=== PATIENT | male | born 1945 | race African-American/Black ===

== ENCOUNTER 2025-03-24 09:51 | Inpatient (IN) | payer MEDICARE, OTHER ==
[~2025-03-24] VITALS: Ht 172.7 cm; Wt 86.2 kg
[2025-03-24] MEDS: FUROSEMIDE 40MG/4ML VIAL IV ONE (10:13)
[2025-03-24] MEDS: METHYLPREDNISOLONE SOD SUCC 125MG/2ML (ACT-O-VIAL) IV ONE (10:13)
[2025-03-24] MEDS: IPRATROPIUM BROMIDE (0.02%) 0.5MG/2.5ML NEB HHN ONE (10:30)
[2025-03-24] MEDS: ALBUTEROL (0.083%) 2.5MG/3ML NEB HHN ONE (10:31)
[2025-03-24 10:32] LABS: BASOPHILS % 0.2 % (0.0-2.0); EOSINOPHILS % 0.1 % (0.0-5.0); HEMATOCRIT. 41.5 % (42.0-52.0); HEMOGLOBIN. 12.9 g/dL (14.0-18.0); LYMPHOCYTES % 7.8 % (20.0-50.0); MEAN PLATELET VOLUME 10.7 fl (7.4-10.4); MONOCYTES % 6.0 % (2.0-8.0); NEUTROPHILS % 85.9 % (40.0-76.0); PLATELET 212 x1000/uL (130-400); RED BLOOD CELL COUNT 4.37 mill/uL (4.7-6.1); RED CELL DISTRIBUTION WIDTH 16.8 % (11.6-14.6)
[2025-03-24 10:56] LABS: TROPONIN I HIGH SENSITIVITY 98 ng/L (3.0-53)
[2025-03-24 11:01] VITALS: PULSE 111; RESP 21; O2SAT 93
[2025-03-24 11:32] LABS: INR 1.0
[2025-03-24 11:48] LABS: CREATININE 1.1 mg/dL (0.6-1.3); UREA NITROGEN BLOOD 17 mg/dL (9-23)
[2025-03-24 11:50] LABS: ASPARTATE AMINOTRANSFERASE 30 IU/L (<34)
[2025-03-24 11:51] LABS: BILIRUBIN DIRECT < 0.1 mg/dL (<=3.0); BILIRUBIN TOTAL 0.3 mg/dL (0.1-1.0); PROTEIN TOTAL 8.4 g/dL (6.0-8.3)
[2025-03-24] MEDS ORDERED: ENOXAPARIN 120MG/0.8ML SYR SUBCUT ONE (12:15)
[2025-03-24] MEDS ORDERED: ASPIRIN 81MG TABLET PO ONE (12:15)
[2025-03-24] MEDS: ASPIRIN 81MG TABLET PO SCH ×2 (13:43→21:38)
[2025-03-24] MEDS: ENOXAPARIN 120MG/0.8ML SYR SUBCUT SCH (13:43)
[2025-03-24] MEDS ORDERED: CLONIDINE 0.1MG TABLET PO PRN (13:45)
[2025-03-24] MEDS ORDERED: IPRATROPIUM/ALBUTEROL 0.5-3(2.5)MG/3ML NEB HHN PRN (13:45)
[2025-03-24] MEDS: FUROSEMIDE 40MG/4ML VIAL IV SCH ×2 (13:45→17:15)
[2025-03-24] MEDS: ENOXAPARIN 40MG/0.4ML SYR SUBCUT SCH (13:45)
[2025-03-24] MEDS ORDERED: ACETAMINOPHEN 650MG/20.3ML UDC GT PRN ×2 (13:45)
[2025-03-24] MEDS ORDERED: ONDANSETRON HCL 4MG/2ML INJ IV PRN (13:45)
[2025-03-24] MEDS ORDERED: DEXTROSE 50% WATER 50ML SYRINGE IV PRN (14:30)
[2025-03-24] MEDS: EMPAGLIFLOZIN 10MG TABLET PO SCH (15:27)
[2025-03-24 16:07] LABS: PHOSPHORUS 3.0 mg/dL (2.5-4.9)
[2025-03-24] MEDS: PANTOPRAZOLE SODIUM 40 MG/VIAL IV SCH (16:16)
[2025-03-24 17:02] LABS: TROPONIN I HIGH SENSITIVITY 159 ng/L (3.0-53)
[2025-03-24] MEDS: BLOOD SUGAR DIAGNOSTIC STRIP TEST SCH (17:08)
[2025-03-24] MEDS: SPIRONOLACTONE 12.5MG TABLET PO SCH (17:15)
[2025-03-24] MEDS: POTASSIUM CHLORIDE 20MEQ/PACKET PO NR (17:21)
[2025-03-24 20:30] VITALS: BP 102/82; PULSE 104; RESP 20; TEMP 36.418
[2025-03-24] MEDS: INSULIN LISPRO 100 UNITS/ML SUBCUT SCH (21:00)
[2025-03-24 21:45] LABS: PLATELET 210 x1000/uL (130-400); RED BLOOD CELL COUNT 4.41 mill/uL (4.7-6.1); RED CELL DISTRIBUTION WIDTH 14.9 % (11.6-14.6)
[2025-03-24 23:15] LABS: TROPONIN I HIGH SENSITIVITY 168 ng/L (3.0-53)
[2025-03-25] VITALS (13 sets, daily range): BP systolic 92–158; BP diastolic 55–101; PULSE 80–118; RESP 16–28; TEMP 36.3–37.4; O2SAT 97–100
[2025-03-25 00:19] LABS: CREATININE 1.1 mg/dL (0.6-1.3); UREA NITROGEN BLOOD 16 mg/dL (9-23)
[2025-03-25] MEDS ORDERED: FURO-152 PO (07:57)
[2025-03-25] MEDS ORDERED: EMPA10TA PO (07:57)
[2025-03-25] MEDS ORDERED: SPIR25TA6 PO (07:57)
[2025-03-25] MEDS ORDERED: METO-411 PO (07:57)
[2025-03-25] MEDS ORDERED: ALBU10.7 (07:57)
[2025-03-25] MEDS ORDERED: ASPI-1497 PO (07:57)
[2025-03-25] MEDS: FUROSEMIDE 40MG/4ML VIAL IVP ONE (10:15)
[2025-03-25 10:32] LABS: BG BASE EXCESS -3.3 mmol/L (-2.0-3.0); BG CARBOXYHEMOGLOBIN 1.1 % (0.5-1.5); BG DEOXYHEMOGLOBIN 14.6 % (0.0-5.0); BG FLOW(L/min) 10.00 L/min; BG FRACTION INSPIRED OXYGEN 60; BG HCO3 ACT 29.7 mmol/L (21.0-28.0); BG METHEMOGLOBIN 0.0 % (0.5-1.5); BG OXYGEN SATURATION 85.2 % (94.0-98.0); BG OXYHEMOGLOBIN 84.3 % (94.0-98.0); BG PCO2 100.2 mmHg (35.0-48.0); BG PH 7.090 (7.350-7.450); BG PO2 63.4 mmHg (83.0-108.0); BG SAMPLE SITE RIGHT RADIAL; BG TOTAL HEMOGLOBIN 15.1 g/dL (13.5-17.5); BG VENT MODE MASK - HHN
[2025-03-25] MEDS: FUROSEMIDE 40MG/4ML VIAL IVP NR (10:38)
[2025-03-25] MEDS: METHYLPREDNISOLONE SOD SUCC 125MG/2ML (ACT-O-VIAL) IV NR (10:39)
[2025-03-25 11:08] LABS: CLARITY URINE CLEAR (CLEAR); COLOR URINE YELLOW (YELLOW); GLUCOSE URINE 3+ (NEGATIVE); KETONES URINE NEGATIVE (NEGATIVE); LEUKOCYTE ESTERASE URINE NEGATIVE (NEGATIVE); NITRITE URINE NEGATIVE (NEGATIVE); OCCULT BLOOD URINE NEGATIVE (NEGATIVE); PH URINE 5.5 (4.5-8.0); PROTEIN URINE NEGATIVE (NEGATIVE); SPECIFIC GRAVITY URINE 1.033 (1.005-1.030); UROBILINOGEN URINE 0.2 E.U./dL (0.2-1.0)
[2025-03-25 11:36] LABS: *AMPHETAMINES SCREEN URINE NEGATIVE (NEGATIVE); *BARBITURATES SCREEN URINE NEGATIVE (NEGATIVE); *BENZODIAZEPINES SCREEN URINE NEGATIVE (NEGATIVE); *COCAINE SCREEN URINE NEGATIVE (NEGATIVE); CANNABINOID URINE SCREEN NEGATIVE (NEGATIVE); ECSTASY MDMA SCREEN URINE NEGATIVE (NEGATIVE); METHADONE URINE SCREEN NEGATIVE (NEGATIVE); OPIATES URINE SCREEN NEGATIVE (NEGATIVE); PHENCYCLIDINE URINE SCREEN NEGATIVE (NEGATIVE)
[2025-03-25] MEDS: ENOXAPARIN 100MG/ML SYR SUBCUT SCH (12:04)
[2025-03-25 12:33] LABS: BACTERIA URINE NONE SEEN; RBC URINE NONE SEEN /hpf (0-2); SQUAMOUS EPITHELIAL CELL URINE NONE SEEN /lpf (RARE/1+); WBC URINE 0-2 /hpf (0-2); YEAST URINE NONE SEEN
[2025-03-25] MEDS: IPRATROPIUM/ALBUTEROL 0.5-3(2.5)MG/3ML NEB HHN SCH (12:52)
[2025-03-25] MEDS ORDERED: ENOXAPARIN 30MG/0.3ML SYR SUBCUT SCH (13:00)
[2025-03-25 13:18] LABS: BG BASE EXCESS -0.6 mmol/L (-2.0-3.0); BG CARBOXYHEMOGLOBIN 0.8 % (0.5-1.5); BG DEOXYHEMOGLOBIN 0.7 % (0.0-5.0); BG FRACTION INSPIRED OXYGEN 45; BG HCO3 ACT 25.4 mmol/L (21.0-28.0); BG METHEMOGLOBIN 0.3 % (0.5-1.5); BG OXYGEN SATURATION 99.3 % (94.0-98.0); BG OXYHEMOGLOBIN 98.2 % (94.0-98.0); BG PCO2 47.0 mmHg (35.0-48.0); BG PH 7.351 (7.350-7.450); BG PO2 153.4 mmHg (83.0-108.0); BG SAMPLE SITE RIGHT RADIAL; BG TOTAL HEMOGLOBIN 14.6 g/dL (13.5-17.5); BG VENT MODE MASK - BIPAP; BG VENT RATE 20.0 set
[2025-03-25] MEDS: FUROSEMIDE 40MG/4ML VIAL IVP SCH (13:20)
[2025-03-25] MEDS: METHYLPREDNISOLONE SOD SUCC 40MG/ML (ACT-O-VIAL) IV SCH (13:21)
[2025-03-25 16:50] LABS: PLATELET 182 x1000/uL (130-400); RED BLOOD CELL COUNT 4.76 mill/uL (4.7-6.1); RED CELL DISTRIBUTION WIDTH 15.5 % (11.6-14.6)
[2025-03-25 16:54] LABS: CREATININE 1.3 mg/dL (0.6-1.3); TRIGLYCERIDE 83 mg/dL (0-150); UREA NITROGEN BLOOD 21 mg/dL (9-23)
[2025-03-25 16:55] LABS: LDL CHOLESTEROL 142 mg/dL (5-100)
[2025-03-25 17:01] LABS: TROPONIN I HIGH SENSITIVITY 255 ng/L (3.0-53)
[2025-03-25] MEDS ORDERED: DEXT 5%/0.9% NACL 1,000 ML IV SCH (17:15)
[2025-03-25] MEDS: PIPERACILLIN/TAZO 3.375G/50ML 50 ML IV SCH (18:32)
[2025-03-25 20:55] LABS: INFLUENZA TYPE A Presumptive Negative (Pres. Neg.); INFLUENZA TYPE B Presumptive Negative (Pres. Neg.)
[2025-03-25 20:56] LABS: RESPIRATORY SYNCYTIAL VIRUS Not Detected (Not Detectd)
[2025-03-26] VITALS (21 sets, daily range): BP systolic 104–136; BP diastolic 68–89; PULSE 81–114; RESP 16–28; TEMP 36.2–37.1; O2SAT 80–100
[2025-03-26 06:14] LABS: HEMATOCRIT. 39.0 % (42.0-52.0); HEMOGLOBIN. 12.5 g/dL (14.0-18.0); MEAN PLATELET VOLUME 11.8 fl (7.4-10.4); PLATELET 188 x1000/uL (130-400); RED BLOOD CELL COUNT 4.24 mill/uL (4.7-6.1); RED CELL DISTRIBUTION WIDTH 14.9 % (11.6-14.6)
[2025-03-26 06:32] LABS: CREATININE 1.3 mg/dL (0.6-1.3); UREA NITROGEN BLOOD 41 mg/dL (9-23)
[2025-03-26 15:42] LABS: LYMPHOCYTES % MANUAL 4.0 % (20.0-50.0); MONOCYTES % MANUAL 3.0 % (2.0-8.0); NEUTROPHILS % MANUAL 93.0 % (45.0-75.0); PLATELET ESTIMATE NORMAL
[2025-03-26] MEDS: ATORVASTATIN CALCIUM 40MG TABLET PO SCH (20:58)
[2025-03-27] VITALS (12 sets, daily range): BP systolic 101–131; BP diastolic 64–85; PULSE 77–102; RESP 15–24; TEMP 36.7–37; O2SAT 91–100
[2025-03-27 07:15] LABS: HEMATOCRIT. 40.2 % (42.0-52.0); HEMOGLOBIN. 13.2 g/dL (14.0-18.0); MEAN PLATELET VOLUME 11.0 fl (7.4-10.4); PLATELET 192 x1000/uL (130-400); RED BLOOD CELL COUNT 4.44 mill/uL (4.7-6.1); RED CELL DISTRIBUTION WIDTH 14.8 % (11.6-14.6)
[2025-03-27 07:30] LABS: CREATININE 1.3 mg/dL (0.6-1.3); UREA NITROGEN BLOOD 39 mg/dL (9-23)
[2025-03-27] MEDS ORDERED: VERAPAMIL HCL 2.5 MG/1 ML 2ML VIAL IV ONE (10:30)
[2025-03-27] MEDS ORDERED: LIDOCAINE HCL 1% 20ML VIAL ONE (10:31)
[2025-03-27] MEDS ORDERED: IODIXANOL 320MG/ML 100 ML BOTTLE IV ONE (10:31)
[2025-03-27] MEDS ORDERED: HEPARIN 1000 UNITS/ML 10ML ONE (10:31)
[2025-03-27] MEDS ORDERED: FENTANYL CITRATE/PF 50MCG/ML 2ML VIAL ONE (11:09)
[2025-03-27] MEDS ORDERED: MIDAZOLAM HCL 2 MG/2 ML VIAL ONE (11:09)
[2025-03-27] MEDS ORDERED: DIPHENHYDRAMINE 50MG/ML VIAL ONE (11:09)
[2025-03-27] MEDS: REGADENOSON 0.4 MG/5 ML IV ONE (12:00)
[2025-03-27 16:03] LABS: BG BASE EXCESS 4.7 mmol/L (-2.0-3.0); BG CARBOXYHEMOGLOBIN 1.6 % (0.5-1.5); BG DEOXYHEMOGLOBIN 7.3 % (0.0-5.0); BG FRACTION INSPIRED OXYGEN 21; BG HCO3 ACT 29.6 mmol/L (21.0-28.0); BG METHEMOGLOBIN 0.1 % (0.5-1.5); BG OXYGEN SATURATION 92.6 % (94.0-98.0); BG OXYHEMOGLOBIN 91.0 % (94.0-98.0); BG PCO2 44.9 mmHg (35.0-48.0); BG PH 7.437 (7.350-7.450); BG PO2 61.5 mmHg (83.0-108.0); BG SAMPLE SITE RIGHT RADIAL; BG TOTAL HEMOGLOBIN 14.0 g/dL (13.5-17.5); BG VENT MODE ROOM AIR
[2025-03-27] MEDS ORDERED: MORPHINE SULFATE/PF 1 MG/ML 100 MG in BAG 1 EACH IV PRN (17:45)
[2025-03-27] MEDS ORDERED: MORPHINE SULFATE 2 MG/ML INJ (NOT FOR IM USE) IV PRN ×2 (18:00)
[2025-03-27] MEDS: PIPERACILLIN/TAZO 3.375G/50ML 50 ML IV SCH (20:57)
[2025-03-27 21:27] LABS: BAND% 2.0 % (1.0-6.0); LYMPHOCYTES % MANUAL 3.0 % (20.0-50.0); MONOCYTES % MANUAL 5.0 % (2.0-8.0); NEUTROPHILS % MANUAL 90.0 % (45.0-75.0); PLATELET ESTIMATE NORMAL
[2025-03-28] VITALS (9 sets, daily range): BP systolic 107–141; BP diastolic 61–87; PULSE 79–94; RESP 14–20; TEMP 36.5–36.7; O2SAT 92–100
[2025-03-28 13:08] LABS: HEMATOCRIT. 43.8 % (42.0-52.0); HEMOGLOBIN. 14.2 g/dL (14.0-18.0); MEAN PLATELET VOLUME 11.8 fl (7.4-10.4); PLATELET 205 x1000/uL (130-400); RED BLOOD CELL COUNT 4.81 mill/uL (4.7-6.1); RED CELL DISTRIBUTION WIDTH 14.6 % (11.6-14.6)
[2025-03-28 13:20] LABS: CREATININE 1.3 mg/dL (0.6-1.3)
[2025-03-28 13:21] LABS: UREA NITROGEN BLOOD 40 mg/dL (9-23)
[2025-03-29] VITALS (11 sets, daily range): BP systolic 111–134; BP diastolic 64–82; PULSE 69–86; RESP 16–22; TEMP 36.3–36.8; O2SAT 95–100
[2025-03-29 17:11] LABS: LYMPHOCYTES % MANUAL 5.0 % (20.0-50.0); MONOCYTES % MANUAL 4.0 % (2.0-8.0); NEUTROPHILS % MANUAL 91.0 % (45.0-75.0); PLATELET ESTIMATE NORMAL
[2025-03-30] VITALS (10 sets, daily range): BP systolic 113–135; BP diastolic 61–87; PULSE 73–82; RESP 15–20; TEMP 36.3–37; O2SAT 95–99
[2025-03-30] MEDS: FAMOTIDINE 20MG/2ML VIAL IV SCH (08:49)
[2025-03-30] MEDS: METHYLPREDNISOLONE SOD SUCC 40MG/ML (ACT-O-VIAL) IV SCH (20:50)
[2025-03-31] VITALS: BP 102/66; PULSE 76; RESP 18; TEMP 36.7; O2SAT 97
[2025-03-31 04:00] VITALS: BP 120/79; PULSE 76; RESP 16; TEMP 36.8; O2SAT 99
[2025-03-31 08:00] VITALS: BP 104/73; PULSE 84; RESP 16; TEMP 36.2; O2SAT 97
[2025-03-31 12:00] VITALS: BP 122/66; PULSE 82; RESP 16; TEMP 36.4; O2SAT 97
[2025-03-31 16:00] VITALS: BP 132/81; PULSE 82; RESP 16; TEMP 36.3; O2SAT 100
[2025-03-31 20:00] VITALS: BP 117/83; PULSE 84; RESP 18; TEMP 35.5; O2SAT 98
[2025-04-01] VITALS: BP 128/81; PULSE 84; RESP 17; TEMP 36.3; O2SAT 97
[2025-04-01 04:00] VITALS: BP 110/75; PULSE 101; RESP 18; TEMP 36.6; O2SAT 96
[2025-04-01 08:00] VITALS: BP 123/76; PULSE 82; RESP 18; TEMP 36.4; O2SAT 99
[2025-04-01 12:15] VITALS: BP 156/72; PULSE 82; RESP 18; TEMP 36.4; O2SAT 96
[2025-04-01 12:21] VITALS: BP 156/72; PULSE 82; RESP 16; TEMP 97.5
== END 2025-04-01 14:03 | disposition home health service (06) | DRG 280 ==
LOC: ER 09:51 → EDBEDREQTM 12:14 → EDBEDREQ 12:14 → 7WST 18:35 → 5EST 03-25 10:23 → 5WST 03-27 16:23
PROVIDERS: ADMIT Hospitalist; ATTEND Hospitalist
PROC: 5A09357 Assistance with Respiratory Ventilation, Less than 24 Consecutive Hours, Continuous Positive Airway Pressure (ICD-10-PCS; principal; 2025-03-25)
PROC: 5A09357 Assistance with Respiratory Ventilation, Less than 24 Consecutive Hours, Continuous Positive Airway Pressure (ICD-10-PCS; 2025-03-26)
DX: I21.4 Non-ST elevation (NSTEMI) myocardial infarction (principal); I50.23 Acute on chronic systolic (congestive) heart failure; J96.01 Acute respiratory failure with hypoxia; J96.02 Acute respiratory failure with hypercapnia; J44.1 Chronic obstructive pulmonary disease with (acute) exacerbation; I42.0 Dilated cardiomyopathy; E11.9 Type 2 diabetes mellitus without complications; I11.0 Hypertensive heart disease with heart failure; D64.9 Anemia, unspecified; E66.01 Morbid (severe) obesity due to excess calories; J98.11 Atelectasis; Z20.822 Contact with and (suspected) exposure to COVID-19; F17.200 Nicotine dependence, unspecified, uncomplicated; G43.909 Migraine, unspecified, not intractable, without status migrainosus; D72.829 Elevated white blood cell count, unspecified; S51.812A Laceration without foreign body of left forearm, initial encounter; S80.212A Abrasion, left knee, initial encounter; W01.0XXA Fall on same level from slipping, tripping and stumbling without subsequent striking against object, initial encounter; E78.00 Pure hypercholesterolemia, unspecified; Z79.4 Long term (current) use of insulin; Z68.37 Body mass index [BMI] 37.0-37.9, adult; Z79.82 Long term (current) use of aspirin; Z79.84 Long term (current) use of oral hypoglycemic drugs; Z79.899 Other long term (current) drug therapy; Z86.73 Personal history of transient ischemic attack (TIA), and cerebral infarction without residual deficits; Y93.89 Activity, other specified; Y92.89 Other specified places as the place of occurrence of the external cause; Y99.8 Other external cause status
CPT/HCPCS: 36415; 36600; 71045; 80048; 80061; 80076; 80305; 81003; 82375; 82550; 82805; 82962; 83036; 83605; 83735; 83880; 84100; 84145; 84443; 84484; 85025; 85027; 87420; 87426; 87804; 93005; 93306; 93970; 94070; 94640; 94760; 96372; 96374; 96375; 96376; 97162; 97166; 99285; A4606; J1200; J1308; J1644; J1650; J1815; J1938; J2003; J2250; J2470; J2543; J2919; J3010; J3490; J7042; Q9967